=== PATIENT | male | born 1975 | race Caucasian/White ===

== ENCOUNTER 2016-07-23 19:01 | Inpatient (IN) | payer BC ==
--- NOTE | ~2016-07-23 | MR2 ---
[facility] A Service of [facility] & [facility] RADIOLOGY TEXT RESULTS PATIENT: NATALIE DIAZ LOCATION: C2A : 74 UNIT #: [id number] AGE: [address]: Michel Evans MD SEX: M ORDER DR: [id number] [facility] [address] [facility]. [place], [place] [address] [id number] MR#: [id number] #: [id number] NAME: NATALIE DIAZ : 1975 SEX: M STUDY DATE/TIME: 07/24/2016 19:46 UNIT: C2A ROOM: 202 STUDY DESCRIPTION: MR Abdomen WWo Cont Attending Physician: Michel Evans M.D. Ordering Physician: Virginia Grigsby M.D. MRI CENTER REPORT This report is preliminary unless electronic signature is present. EXAM MRI abdomen without and with IV gadolinium. HISTORY Abdomen pain for 1 week. Multiple hepatic lesions on CT earlier today. Probable hemangiomas. FINDINGS MRI abdomen was performed without and with IV gadolinium. The exam is compared to CT earlier today. There are multiple hepatic lesions with similar MR characteristics, all suggesting hemangiomas, and corresponding to findings on the CT earlier today. These are hyperintense on T2, and enhance with gadolinium, in a pattern characteristic of hemangiomas. These include a 0.9 cm hemangioma in the left hepatic dome, a 5 mm hemangioma in the anterior margin of the lateral segment left hepatic lobe superiorly, a 2.9 x 2.8 cm hemangioma in the anterolateral right hepatic lobe in segment 8, a 2.2 cm x 1.8 mm angioma in the lateral segment left hepatic lobe at the junction of segments 2 and 3, a 5 mm hemangioma in the inferolateral right hepatic lobe, and a 1.19 x 2.9 cm hemangioma in the inferomedial right hepatic lobe. No suspicious hepatic mass. No biliary ductal dilatation. Mild diffuse fatty infiltration of the liver. The spleen, pancreas, gallbladder, kidneys, and adrenal glands are normal. No ascites. The visualized abdominal aorta is normal in caliber. IMPRESSION Multiple hepatic hemangiomas. No suspicious hepatic mass. No biliary dilatation. Dictated by... [facility] A Service of [facility] & [facility] / [facility] RADIOLOGY TEXT RESULTS PATIENT: NATALIE DIAZ LOCATION: A : 74 UNIT #: [id number] AGE: [address]: Michel Evans MD SEX: M ORDER DR: Mitch Schmid M.D. THIS IS AN ELECTRONICALLY VERIFIED REPORT Mitch Schmid M.D. at 07/24/2016 11:33 PM ROBERTO/kumar TD: 07/24/2016 23:10 JOB #: [id number] MRI CENTER REPORT Page 1 of 1 COPY
--- NOTE | ~2016-07-23 | DS ---
Unit #: [id number] #: [id number] Patient: NATALIE DIAZ [id number] [facility] [address] [facility]. [place], [place] [address] [id number] I MR#: [id number] NAME: NATALIE DIAZ ROOM: 202 Age: 41 Sex: M Admission Date: 07/24/2016 : 1975 Discharge Date: 07/28/2016 Attending Physician: Michel Evans M.D. DISCHARGE SUMMARY REASON FOR ADMISSION Abdominal pain, intractable. HISTORY OF PRESENT ILLNESS/HOSPITAL COURSE The patient is a very pleasant, 41-year-old male with a prior history of chronic low back pain, was transferred from outside facility secondary to increasing abdominal pain. Apparently, he had off and on issues with constipation, took a large amount of laxatives while he was at home. He developed nausea, vomiting as well as generalized abdominal pain on the left side. He questioned if he had blood in his stool, became concerned, presented to outside facility where he underwent a CT abdomen and pelvis. It showed 13 cm of colon wall thickening of the descending colon consistent with inflammatory changes and, thus, he was transferred to [facility] for further evaluation. Outside CT also showed multiple peripheral enhancing liver lesions likely secondary to hemangiomas as well. The patient also stated that his father at the age of 48 secondary to colon cancer. Initial laboratory studies did reveal an elevated white count, mildly elevated and, through hospital course, he was placed on IV Flagyl as well as Zosyn. His white count did trend downwards. However, his abdominal pain did persist and worsened. Therefore, we placed consultation to [facility] for evaluation. The patient eventually underwent colonoscopy which did reveal inflammatory changes but no mass and/or tumor was noted. Stool studies were unremarkable and negative. No C. difficile was identified. The patient also underwent MRI of his abdomen, attention to the liver. Findings were more consistent with hemangiomas. The patient has now been transitioned to p.o. medications as well as has tolerated a low residue diet without difficulty. He has been cleared from [facility] for discharge home. I have instructed him to be off work until August 05, 2016. I have also instructed him to complete his antibiotics. Prescriptions have been given already for antibiotics as well as pain medications by [facility]. He is to follow with his PCP in approximately 7 to 10 days post discharge. No dairy products for the next 10 days. No alcohol for the next 10 days. FINAL DISCHARGE DIAGNOSES 1. Colitis. Unit #: [id number] #: [id number] Patient: NATALIE DIAZ 2. Intractable abdominal pain. 3. Nausea, vomiting. 4. Bright red blood per rectum, now resolved. 5. Family history of colon carcinoma. FINAL DISCHARGE MEDICATIONS 1. Flagyl 250 mg p.o. q.6 #40. Prescription given by [facility]. 2. Lortab 7.5/325 mg one tablet p.o. q.4 p.r.n. #24. Prescription given. DISCHARGE CONDITION Stable. DISCHARGE DISPOSITION Home. FOLLOWUP PCP 7 to 10 days. Dictated by... Michel Evans M.D. DIANNA/abraham TD: 07/30/2016 07:06 JOB #: [id number] DISCHARGE SUMMARY Page 1 of 1 X Michel Evans MD X DISCHARGE SUMMARY
--- NOTE | ~2016-07-23 | CT2 ---
[facility] A Service of [facility] & [facility] RADIOLOGY TEXT RESULTS PATIENT: NATALIE DIAZ LOCATION: C2A 202-01 : [birth year] UNIT #: [id number] AGE: [address]: Michel Evans MD SEX: M ORDER DR: [id number] [address] [address] [id number] E MR#: [id number] Acc #: [id number] NAME: NATALIE DIAZ : 1975 SEX: M STUDY DATE/TIME: 07/24/2016 0:32 UNIT: SED ROOM: STUDY DESCRIPTION: CT Abd and Pelv W Cont Attending Physician: Alan Markham M.D. Ordering Physician: Staff Doctor Not On MEDICAL IMAGING REPORT This report is preliminary unless electronic signature is present. EXAM CT abdomen and pelvis with contrast HISTORY 41-year-old male abdominal pain. States no bowel movements x1 week. TECHNIQUE This CT exam was performed with one or more of the following radiation dose reduction techniques: automatic control, adjustment of mA and/or kV according to patient size, and iterative reconstruction. FINDINGS Axial images performed through the abdomen and pelvis following IV contrast and oral contrast. Multiplanar reconstructed images reviewed at a workstation. Examination demonstrates at least 3 liver lesions 1 in the lateral aspect of the right hepatic lobe measuring 2.4 x 2.3 cm. 1 in the left hepatic lobe measuring 2.2 x 1.9 cm and 1 in the inferior aspect of the right hepatic lobe measuring 2.5 x 2.1 cm. These all have similar imaging characteristics demonstrating a peripheral enhancement. Imaging features are suggestive of hemangioma with other liver processes such as metastatic disease or infection, less likely. There is also a small focus of cortical enhancement inferior right hepatic lobe nonspecific. No ductal dilatation. Gallbladder contracted. Spleen appears normal. Pancreas, kidneys and adrenal glands unremarkable. There is a focal bowel wall thickening involving the descending colon over approximately 13 cm length. Findings are nonspecific but suggest a focal colitis. This could be related to diverticular disease but a distinct diverticulum is not identified. Bowel wall thickening appears out of proportion to the pericolonic changes, this would also make diverticular disease less likely and favor colitis. This may be infectious or STS. [facility] A Service of [facility] & [facility] RADIOLOGY TEXT RESULTS PATIENT: NATALIE DIAZ LOCATION: C2A - : [birth year] UNIT #: [id number] AGE: [address]: Michel Evans MD SEX: M ORDER DR: inflammatory in nature. Recommend clinical follow up to resolution. Neoplastic process considered less likely. PELVIS: Bladder and prostate unremarkable. Osseous structures soft tissues unremarkable. IMPRESSION 1. Approximately 13 cm segment of colonic wall thickening involving the descending colon with some mild pericolonic inflammatory changes. Findings most suggestive of focal colitis possibly infectious in etiology. Recommend clinical follow up to resolution. 2. Multiple peripherally enhancing liver lesions as well as a single small punctate enhancement within the right lobe of the liver. Findings are suggestive of hemangioma, however recommend correlation with any prior studies if available or outside studies. If there are no prior studies clinical and imaging followup is recommended to include a dedicated MRI or CT of the liver. Dictated by... Jamey Dietz M.D. THIS IS AN ELECTRONICALLY VERIFIED REPORT Jamey Dietz M.D. at 07/24/2016 10:32 PM PRABHAKAR/fransisco TD: 07/24/2016 01:04 JOB #: [id number] MEDICAL IMAGING REPORT Page 1 of 1
--- NOTE | ~2016-07-23 | OR ---
Unit #: [id number] #: [id number] Patient: NATALIE JUDD [id number] [address] [place], [place] [address] [id number] I MR#: [id number] NAME: NATALIE JUDD ROOM: 202 Date of Procedure: 07/27/2016 Admission Date: 07/24/2016 Surgeon: Simón Combs M.D. : 1975 Attending Physician: Michel Evans M.D. OPERATIVE REPORT PREOPERATIVE DIAGNOSIS Colitis. POSTOPERATIVE DIAGNOSIS Colitis. PROCEDURE PERFORMED Colonoscopy to cecum with random biopsy x10. ANESTHESIA Monitored anesthesia. INDICATIONS FOR PROCEDURE Mr. Judd is a 41-year-old gentleman with a family history of colitis and colon cancer, who presented with abdominal pain and leukocytosis. CT scan was concerning for colitis. DESCRIPTION OF PROCEDURE The patient was transported from his hospital room to the operating room, and after appropriate monitoring and positioning, he was sedated by the anesthesiologist. On rectal examination, there was no local anorectal pathology, and prostate was normal to digital exam. Colonoscope was passed through the anal verge throughout the extent of the colon to the cecum, where the appendiceal orifice and ileocecal valve were photodocumented. On careful antegrade and retrograde visualization, most of the colon appeared normal, but he had a localized area of some cobblestoning of the mucosa consistent with colitis between 25 and 35 cm from the anal verge. Random biopsies were taken throughout the colon, but specific biopsies were taken from this area and sent separately. There was no ulceration. No active bleeding. In the rectum, there were no pathological changes to the mucosa. The patient tolerated the procedure well and was transported to the recovery in stable condition. Findings were discussed with his girlfriend as requested. He will be readmitted to his hospital room and start on a low residue diet. Dictated by... Simón Combs M.D. RS/modl Unit #: [id number] #: [id number] Patient: NATALIE JUDD TD: 07/27/2016 22:38 JOB #: [id number] OPERATIVE REPORT Page 1 of 1 X Simón Combs MD PROCEDURE OPERATIVE NOTE
--- NOTE | ~2016-07-23 | HP ---
Unit #: [id number] #: [id number] Patient: NATALIE DIAZ [id number] [address] [place], [place] [address] [id number] MR#: [id number] NAME: NATALIE DIAZ ROOM: 202 Age: 41 Sex: M Admission Date: 07/24/2016 : 1975 Attending Physician: Virginia Grigsby M.D. HISTORY AND PHYSICAL CHIEF COMPLAINT Abdominal pain with colitis. HISTORY This pleasant 41-year-old male with chronic low back pain, was transferred from [facility] emergency department for abdominal pain. Patient took a large amount of laxatives for constipation over the past week. Two days ago he then developed nausea, vomiting and generalized abdominal pain but more localized to the left side. He did pass a little bit of liquidy stool that did appear to be bloody, has been experiencing sweats and chills. Has never had similar symptoms in the past, denies ill exposure or eating anything out of the ordinary. He presented to [facility] emergency department last evening where a CT scan was performed showing 13 cm segment of colonic wall thickening of the descending colon and some mild pericolonic inflammatory changes, most suggestive of focal colitis. He was treated with Toradol, Zofran, boluses with fluids. Given potassium for a potassium of 3. Ultimately was given a mg of Dilaudid with improvement of his pain, and 500 [address] The [address] scan also showed multiple peripheral enhancing liver lesions, probably secondary to hemangioma, although dedicated scan is recommended. The patient denies previous stomach or colon issues, has never had a colonoscopy in the past. His father at age 48 from colon cancer. PAST MEDICAL HISTORY 1. Chronic low back pain. 2. Right rotator cuff repair. ALLERGIES None. HOME MEDICATIONS Delong 7.5 mg b.i.d. FAMILY HISTORY Colon cancer in his father who at age 48 of cancer. SOCIAL HISTORY The patient lives with his girlfriend. He smoked for a few years but stopped smoking at age 22. Seldom drinks alcohol, denies illicit drug use. REVIEW OF SYSTEMS Notable for abdominal pain, some bloody liquidy stool but more significantly he has been constipated for the past week, chronic low back Unit #: [id number] #: [id number] Patient: NATALIE DIAZ pain, fevers, sweats and chills, nausea, vomiting, right rotator cuff repair. All other systems were reviewed and are otherwise negative. PHYSICAL EXAMINATION GENERAL: Pleasant 41-year-old male currently in no acute distress. VITAL SIGNS: Temperature 98.1, pulse 82, respirations 20, blood pressure 127/91, O2 saturation is 100% on room air. HEENT: Eyes - PERRLA, extraocular muscles are intact. Pharynx is benign. NECK: Supple without adenopathy or thyromegaly. CHEST: Clear. CARDIAC: Normal S1 and S2 without S3, S4 or murmur. ABDOMEN: Bowel sounds are present. Patient is tender in the left mid abdomen but without rebound or guarding. No hepatosplenomegaly or masses. RECTAL: No stool in the vault. Hemoccult negative jelly. EXTREMITIES: Without clubbing, cyanosis or edema. Pedal pulses are present. NEUROLOGIC: Patient is awake, alert, and oriented. Cranial nerves are intact. Equal strength throughout. DIAGNOSTIC STUDIES LABORATORY STUDIES: Hematocrit is 43.1, white blood count is 18, normal platelet count. SMA 12 - potassium is 3. Normal LFTs, amylase and lipase. Urinalysis with 2+ ketones, 1+ protein, 5-10 red cells, no white cells. IMAGING STUDIES: Acute abdominal series. No acute disease. CT scan - 13 cm segment of colonic wall thickening involving the descending colon with mild pericolonic inflammatory changes, most suggestive of focal colitis. Multiple peripherally enhancing liver lesions, as well as a single small punctate enhancement within the right lobe of the liver with findings most suggestive of hemangioma, but followup imaging recommended including a dedicated MRI or CT scan of the liver. ASSESSMENT 1. Two days of nausea and vomiting with increasing left-sided abdominal pain and patient had been constipated for the past week. Has noticed a small amount of liquidy blood in the stool after a large amount of laxatives. CT scan shows colitis, which could be infectious versus ischemia, versus inflammatory. 2. Probable hemangiomas of the liver. 3. Chronic low back pain. 4. Hypokalemia. PLANS 1. IV fluids and supportive treatment. 2. Levaquin and Flagyl. 3. Stool cultures. 4. SCDs for DVT prophylaxis. 5. GI consultation. 6. Replace potassium and check magnesium. 7. Dedicated MRI scan of the liver. Dictated by Virginia Grigsby M.D. Unit #: [id number] #: [id number] Patient: NATALIE DIAZ AML/ts TD: 07/24/2016 05:55 JOB #: [id number] CC: Dr. Brewster HISTORY AND PHYSICAL Page 1 of 1 X Virginia Grigsby MD X HISTORY AND PHYSICAL
--- NOTE | ~2016-07-23 | CO ---
Unit #: [id number] #: [id number] Patient: NATALIE DIAZ [id number] [address] [place], [place] [address] [id number] I MR#: [id number] NAME: NATALIE DIAZ ROOM: 202 Age: 41 Sex: M Admission Date: 07/24/2016 : 1975 Attending Physician: Michel Evans M.D. Consultation Date: 07/24/2016 CONSULTATION REPORT HISTORY OF PRESENT ILLNESS Mr. Diaz is a 41-year-old, white male with a 2-3-day history of abdominal cramps, nausea, and vomiting. The nausea and vomiting have stopped over the last 12 hours, however. CT scan in the emergency room noted patient to have a colitis. Although the patient did not look toxic, his white blood cell count was 17,000. He was admitted for treatment thereof. PAST MEDICAL HISTORY This patient has had dietary issues for quite some time. He says he has a very poor diet and he does not eat very well. He, however, has had no significant weight loss recently. SOCIAL HISTORY He is a non-alcohol user and non-tobacco smoker. PAST SURGICAL HISTORY The only surgery he had had is a rotator cuff operation. MEDICATIONS He takes no medications at home, except for some p.r.n. pain medications. REVIEW OF SYSTEMS He says, also, his bowels have been very sluggish over the past week. ALLERGIES He has no known allergies. EXAMINATION GENERAL APPEARANCE: Cooperative, alert, white male oriented x3. VITAL SIGNS: Stable. HEENT: ENT are clear. There is no jaundice. Pupils are equal and reactive to light. CHEST: Clear. CARDIAC: Rhythm is regular. ABDOMEN: Soft. Slight distention, but no tenderness. No peritoneal signs in any quadrant. EXTREMITIES: Full range of motion. Peripheral pulses 1-2+ bilaterally. IMPRESSION This patient has a [id number] form of colitis, rule out infection. PLAN We will add Zosyn, which is an antibiotic, to our regimen. We will Unit #: [id number] #: [id number] Patient: NATALIE DIAZ observe the patient very closely. Dictated by... Robin Roberts/sheila TD: 07/24/2016 12:25 JOB #: [id number] CONSULTATION REPORT Page 1 of 1 X J Luis Nelson MD CONSULTATION REPORT
--- NOTE | ~2016-07-23 | CR2 ---
[facility] A Service of [facility] RADIOLOGY TEXT RESULTS PATIENT: NATALIE DIAZ LOCATION: : [birth year] UNIT #: [id number] AGE: [address]: Michel Evans MD SEX: M ORDER DR: [id number] [place] [id number] MR#: [id number] Acc #: [id number] NAME: NATALIE DIAZ : 1975 SEX: M STUDY DATE/TIME: 07/23/2016 20:20 UNIT: SED ROOM: STUDY DESCRIPTION: CR Abdomen Acute Series Attending Physician: Alan Markham M.D. Referring Physician: Deondre Becerril M.D. Ordering Physician: Alan Markham M.D. MEDICAL IMAGING REPORT This report is preliminary unless electronic signature is present. EXAM Acute abdomen series. DATE OF EXAM 07/23/2016 HISTORY 41-year-old male with abdominal pain for 1 week. COMPARISON None. FINDINGS Frontal chest and 3 flat and upright views of the abdomen. 4 total images. Lungs and pleural spaces are clear. No pneumothorax. Heart size and mediastinum are normal. Bowel gas pattern is nonobstructive. No free intraperitoneal air. No pathologic calcifications projecting over the renal shadows or expected courses of either ureter. No acute bony abnormality. IMPRESSION Negative acute abdomen series. Dictated by... Isidro Bullock M.D. THIS IS AN ELECTRONICALLY VERIFIED REPORT Isidro Bullock M.D. at 07/24/2016 10:58 PM JOSE/randi [facility] A Service of [facility] RADIOLOGY TEXT RESULTS PATIENT: NATALIE DIAZ LOCATION: C2 : [birth year] UNIT #: [id number] AGE: [address]: Michel Evans MD SEX: M ORDER DR: TD: 07/23/2016 22:41 JOB #: [id number] MEDICAL IMAGING REPORT Page 1 of 1
[2016-07-23] MEDS ORDERED: HYDROCODON-ACET15 M1 PO (19:18)
[2016-07-23 20:53] LABS: BASOPHIL# 0.1 X10e3 (0-0.3); BASOPHIL% 0.4 % (0-2.5); EOSINOPHIL% 0.1 % (0.0-7.0); HEMATOCRIT 43.1 % (38.0-50.0); HEMOGLOBIN 14.8 gm/dL (13.0-16.0); LYMPHOCYTE# 2.1 X10e3 (1.0-3.5); LYMPHOCYTE% 11.5 % (17.0-45.0); MEAN CELL VOLUME 86.6 FL (83-96); MEAN CORPUSCULAR HEMOGLOBIN 29.9 PG (28-34); MEAN CORPUSCULAR HGB CONC 34.5 g/dL (30-36); MEAN PLATELET VOLUME 8.1 FL (6.5-11.5); MONOCYTE# 1.8 X10e3 (0-1.0); MONOCYTE% 10.2 % (3.0-12.0); NEUTROPHIL# 13.9 X10e3 (1.5-7.1); NEUTROPHIL% 77.8 % (40-75); PLATELET COUNT 327 X10e3 (140-420); RED BLOOD COUNT 4.97 X10e (3.90-5.60); RED CELL DISTRIBUTION WIDTH 13.2 % (11.0-15.5); WHITE BLOOD COUNT 17.9 X10e3 (4.0-10.5)
[2016-07-23 20:54] LABS: DIFF IND NO
[2016-07-23 21:11] LABS: ALBUMIN SERUM 4.4 g/dL (3.5-5.0); BILIRUBIN, DIRECT 0.2 mg/dL (0.0-0.2); BILIRUBIN,INDIRECT 0.9 mg/dL (0.0-0.9); BILIRUBIN,TOTAL 1.1 mg/dL (0.2-2.0); GLOM FILT RATE Estimated 92.4 mL/min (>60)
[2016-07-23 22:39] LABS: URINE SOURCE CLEAN CATCH
[2016-07-23 22:43] LABS: URINE APPEARANCE CLEAR; URINE BILIRUBIN POS (NEG); URINE BLOOD 1+ (NEG); URINE COLOR DK YELLOW; URINE GLUCOSE NEG (NORM); URINE LEUKOCYTE ESTERASE NEG (NEG); URINE NITRATE NEG (NEG); URINE PROTEIN 1+ (NEG); URINE SPECIFIC GRAVITY >=1.030 (1.003-1.035); URINE UROBILINOGEN 0.2 MG/DL (NORM)
[2016-07-23 22:48] LABS: MICRO INDICATED? YES; URINE KETONE 2+ (NEG)
[2016-07-23 22:52] LABS: CULTURE INDICATED? NO; URINE AMORPHOUS SEDIMENT AMORP URATES; URINE BACTERIA NEG (NEG); URINE MUCUS PRESENT; URINE SQUAMOUS EPITHELIAL CELL FEW /[HPF]; URINE WBC 0-2 /[HPF] (0-5)
[2016-07-24 11:45] LABS: BASOPHIL% 0.3 % (0-2.5); EOSINOPHIL# 0.1 X10e3 (0-0.7); EOSINOPHIL% 0.9 % (0.0-7.0); HEMATOCRIT 39.4 % (38.0-50.0); LYMPHOCYTE% 16.9 % (17.0-45.0); MEAN CELL VOLUME 88.2 FL (83-96); MEAN CORPUSCULAR HEMOGLOBIN 29.1 PG (28-34); MEAN PLATELET VOLUME 8.2 FL (6.5-11.5); MONOCYTE# 1.2 X10e3 (0-1.0); MONOCYTE% 10.3 % (3.0-12.0); NEUTROPHIL# 8.4 X10e3 (1.5-7.1); NEUTROPHIL% 71.6 % (40-75); PLATELET COUNT 277 X10e3 (140-420); RED BLOOD COUNT 4.46 X10e (3.90-5.60); RED CELL DISTRIBUTION WIDTH 12.8 % (11.0-15.5); WHITE BLOOD COUNT 11.8 X10e3 (4.0-10.5)
[2016-07-24 11:48] LABS: DIFF IND NO
[2016-07-24 12:08] LABS: CALCIUM SERUM 8.4 mg/dL (8.4-10.2); GLOM FILT RATE Estimated 92.4 mL/min (>60); MAGNESIUM 2.2 mg/dL (1.6-3.0); POTASSIUM 3.4 mmol/L (3.5-5.1)
[2016-07-24 12:08] LABS: AMPHETAMINE NEG (NEG); BARBITURATES NEG (NEG); BENZODIAZEPINES NEG (NEG); COCAINE NEG (NEG); MARIJUANA NEG (NEG); OPIATES POS (NEG); TRICYCLIC ANTIDEPRESSANTS NEG (NEG); U METHADONE NEG (NEG)
[2016-07-25 06:03] LABS: HEMOGLOBIN 12.8 gm/dL (13.0-16.0); MEAN CELL VOLUME 88.1 FL (83-96); MEAN CORPUSCULAR HEMOGLOBIN 29.7 PG (28-34); MEAN CORPUSCULAR HGB CONC 33.7 g/dL (30-36); RED BLOOD COUNT 4.32 X10e (3.90-5.60); WHITE BLOOD COUNT 9.6 X10e3 (4.0-10.5)
[2016-07-25 06:38] LABS: ALBUMIN SERUM 3.5 g/dL (3.5-5.0); BILIRUBIN,TOTAL 0.5 mg/dL (0.2-2.0); CALCIUM SERUM 8.4 mg/dL (8.4-10.2); GLOM FILT RATE Estimated 92.4 mL/min (>60); POTASSIUM 3.8 mmol/L (3.5-5.1)
[2016-07-27 05:13] LABS: HEMATOCRIT 39.7 % (38.0-50.0); HEMOGLOBIN 13.4 gm/dL (13.0-16.0); MEAN CELL VOLUME 87.1 FL (83-96); MEAN CORPUSCULAR HEMOGLOBIN 29.4 PG (28-34); MEAN CORPUSCULAR HGB CONC 33.7 g/dL (30-36); MEAN PLATELET VOLUME 8.5 FL (6.5-11.5); RED BLOOD COUNT 4.55 X10e (3.90-5.60); RED CELL DISTRIBUTION WIDTH 12.9 % (11.0-15.5); WHITE BLOOD COUNT 6.7 X10e3 (4.0-10.5)
[2016-07-27 06:11] LABS: CALCIUM SERUM 8.9 mg/dL (8.4-10.2); GLOM FILT RATE Estimated 92.4 mL/min (>60); POTASSIUM 3.8 mmol/L (3.5-5.1)
[2016-07-28 05:07] LABS: HEMATOCRIT 39.9 % (38.0-50.0); HEMOGLOBIN 13.4 gm/dL (13.0-16.0); MEAN CELL VOLUME 87.6 FL (83-96); MEAN CORPUSCULAR HEMOGLOBIN 29.4 PG (28-34); MEAN CORPUSCULAR HGB CONC 33.5 g/dL (30-36); MEAN PLATELET VOLUME 8.6 FL (6.5-11.5); RED BLOOD COUNT 4.55 X10e (3.90-5.60); RED CELL DISTRIBUTION WIDTH 13.1 % (11.0-15.5); WHITE BLOOD COUNT 7.5 X10e3 (4.0-10.5)
[2016-07-28] MEDS ORDERED: FLAGYL250 M1 PO (15:27)
[2016-07-28] MEDS ORDERED: LORTAB 7.5-3251 EACH PO (15:28)
[2016-07-28] MEDS ORDERED: TYL325 PO (15:32)
== END 2016-07-28 16:28 | disposition home or self-care (01) | DRG 392 ==
LOC: SED 19:01 → C2A 07-24 02:09 → SED 07-24 02:09 → SEDOF 07-24 02:09 → C2A 07-24 02:27 → SEDOF 07-24 04:30 → C2A 07-24 04:30
PROVIDERS: Emergency Medicine; Family Medicine; Internal Medicine; Specialist; Surgery
PROC: 0DBE8ZX Excision of Large Intestine, Via Natural or Artificial Opening Endoscopic, Diagnostic (ICD-10-PCS; principal; 2016-07-27 07:30)
DX: K52.9 Noninfective gastroenteritis and colitis, unspecified (principal); K62.5 Hemorrhage of anus and rectum; Z87.891 Personal history of nicotine dependence; D18.09 Hemangioma of other sites; M54.5 Low back pain; G89.29 Other chronic pain; E87.6 Hypokalemia; D72.829 Elevated white blood cell count, unspecified; Z80.0 Family history of malignant neoplasm of digestive organs; R10.9 Unspecified abdominal pain; R11.2 Nausea with vomiting, unspecified
CPT/HCPCS: 36415; 74022; 74177; 74183; 80048; 80053; 80076; 80307; 81003; 82150; 83605; 83690; 83735; 85025; 85027; 87045; 87177; 87209; 87427; 87493; 87899; 88305; 96361; 96374; 96375; 99285; A9577; J1170; J1885; J1956; J2270; J2405; J2543; Q9967